=== PATIENT | female | born 1990 | race Caucasian/White ===

== ENCOUNTER 2016-09-19 06:35 | Inpatient (IN) | payer OTHER ==
[~2016-09-19] VITALS: Ht 162.6 cm; Wt 81.6 kg
[2016-09-19] VITALS (34 sets, daily range): BP systolic 83–145; BP diastolic 46–86
[~2016-09-19 06:35] MED LIST: AUGMENTIN875 MG PO; CYCLOBENZAPRINE10 MG PO; LORTAB 10 MG-3473 ML PO; MELOXICAM7.5 MG PO; MIRENA52 MG IY; Micronor,Nor-Q-D,Err PO; NO HOME MEDS; TYLENOL REGULA325 MG PO
[2016-09-19] MEDS ORDERED: PRENATAL TABLE1 EAC3 PO (07:06)
[2016-09-19 10:52] LABS: EOSINOPHIL (%) 1.4 % (0-5); EOSINOPHIL COUNT 0.2 K/uL (0-0.3); HEMATOCRIT 30.4 % (36.0-46.0); IMMATURE GRANULOCYTE (%) 0.5 % (0.0-0.7); IMMATURE GRANULOCYTE COUNT 0.1 K/uL; INSTRUMENT ABS NEUTROPHIL CT 8.2 K/uL; LYMPHOCYTE COUNT 3.3 K/uL (1.0-2.8); MCH 30.2 PG (29.0-34.0); MCHC 32.2 G/DL (30.0-36.0); MCV 93.8 FL (83-99); MEAN PLAT.VOLUME 11.1 uM^3 (9.5-12.4); MONOCYTE (%) 10.1 % (3-12); MONOCYTE COUNT 1.3 K/uL (0-0.8); NEUTROPHIL (%) 62.4 % (45-76); NEUTROPHIL COUNT 8.2 K/uL (1.8-6.4); PLATELET COUNT 163 K/uL (156-360); RBC DIS.WIDTH-CV 13.5 % (11.8-14.6); RBC DIS.WIDTH-SD 46.2 % (39-53); RED BLOOD COUNT 3.24 M/uL (3.80-5.20); WHITE BLOOD COUNT 13.1 K/uL (4.1-10.2)
[2016-09-20 07:46] VITALS: BP 106/55
[2016-09-20 23:03] VITALS: BP 105/55
[2016-09-21 05:35] VITALS: BP 100/56
== END 2016-09-21 14:15 | disposition home or self-care (01) | DRG 775 ==
LOC: LDRP-OP 06:35 → 2WEST 06:36 → LDRP-OP 09:45 → 2WEST 19:14 → LDRP-OP 10-18 19:52
PROVIDERS: Obstetrics & Gynecology
PROC: 10E0XZZ Delivery of Products of Conception, External Approach (ICD-10-PCS; principal; 2016-09-19)
PROC: 3E033VJ Introduction of Other Hormone into Peripheral Vein, Percutaneous Approach (ICD-10-PCS; 2016-09-19)
PROC: 10907ZC Drainage of Amniotic Fluid, Therapeutic from Products of Conception, Via Natural or Artificial Opening (ICD-10-PCS; 2016-09-19)
PROC: 3E0S3BZ Introduction of Anesthetic Agent into Epidural Space, Percutaneous Approach (ICD-10-PCS; 2016-09-19)
DX: O99.334 Smoking (tobacco) complicating childbirth (principal); Z37.0 Single live birth; Z3A.40 40 weeks gestation of pregnancy; F17.210 Nicotine dependence, cigarettes, uncomplicated; Z83.3 Family history of diabetes mellitus; O63.0 Prolonged first stage (of labor); D50.8 Other iron deficiency anemias; O99.013 Anemia complicating pregnancy, third trimester; O69.81X1 Labor and delivery complicated by cord around neck, without compression, fetus 1; E66.9 Obesity, unspecified; O99.214 Obesity complicating childbirth; Z68.30 Body mass index [BMI] 30.0-30.9, adult
CPT/HCPCS: 74000; 85025; C1755; J0595; J7120

== ENCOUNTER 2016-11-18 08:16 | Day surgery (SDC) | payer OTHER ==
[~2016-11-18] VITALS: Ht 162.6 cm; Wt 77.0 kg
[~2016-11-18 08:16] MED LIST changes: +PRENATAL TABLE1 EAC3 PO; +SPRINTEC1 EACH PO
[2016-11-18 08:55] VITALS: BP 120/74
[2016-11-18] MEDS ORDERED: HYDROCODON-ACE1 EAC7 PO (11:09)
[2016-11-18 12:00] VITALS: BP 104/66
[2016-11-18 13:00] VITALS: BP 109/55
== END 2016-11-18 13:17 | disposition home or self-care (01) ==
LOC: SDC 08:16
DX: Z30.2 Encounter for sterilization (principal); D06.0 Carcinoma in situ of endocervix; N94.6 Dysmenorrhea, unspecified; F17.210 Nicotine dependence, cigarettes, uncomplicated; K21.9 Gastro-esophageal reflux disease without esophagitis
CPT/HCPCS: 88302; 88307; J0330; J0690; J1100; J1170; J1885; J2250; J2405; J3010

== ENCOUNTER 2017-01-06 05:37 | Day surgery (SDC) | payer OTHER ==
[~2017-01-06] VITALS: Ht 162.6 cm; Wt 73.5 kg
[~2017-01-06 05:37] MED LIST changes: +HYDROCODON-ACE1 EAC7 PO
[2017-01-06 06:02] VITALS: BP 104/79
[2017-01-06] MEDS ORDERED: HYDROCODON-ACE1 EAC7 PO (09:22)
[2017-01-06 10:50] VITALS: BP 118/72
[2017-01-06 12:00] VITALS: BP 113/65
[2017-01-06 12:25] VITALS: BP 115/68
== END 2017-01-06 12:35 | disposition home or self-care (01) ==
LOC: SDC 05:37
DX: D06.9 Carcinoma in situ of cervix, unspecified (principal); K21.9 Gastro-esophageal reflux disease without esophagitis; J45.909 Unspecified asthma, uncomplicated; F41.8 Other specified anxiety disorders; F17.210 Nicotine dependence, cigarettes, uncomplicated
CPT/HCPCS: 88307; J0131; J0690; J1100; J1170; J1885; J2175; J2250; J2405; J2710; J3010

== ENCOUNTER 2017-01-15 00:39 | Observation (INO) | payer OTHER ==
[~2017-01-15] VITALS: Ht 162.6 cm; Wt 79.0 kg
[2017-01-15 01:16] LABS: HEMATOCRIT 36.4 % (36.0-46.0); MCH 29.6 PG (29.0-34.0); MCHC 32.7 G/DL (30.0-36.0); MCV 90.5 FL (83-99); MEAN PLAT.VOLUME 10.1 uM^3 (9.5-12.4); RBC DIS.WIDTH-CV 13.5 % (11.8-14.6); RBC DIS.WIDTH-SD 44.5 % (39-53); RED BLOOD COUNT 4.02 M/uL (3.80-5.20); WHITE BLOOD COUNT 8.5 K/uL (4.1-10.2)
[2017-01-15 01:17] LABS: PLATELET COUNT 268 K/uL (156-360)
[2017-01-15 01:26] LABS: CHLORIDE 106 mEq/L (99-109); POTASSIUM 3.6 mEq/L (3.7-5.4); SODIUM 140 mEq/L (136-147)
[2017-01-15 01:28] LABS: GLUCOSE 98 mg/dL (70-99)
[2017-01-15 01:29] LABS: ANION GAP 12 MEQ/L (2-14)
[2017-01-15 01:30] LABS: TOTAL BILIRUBIN 0.2 mg/dL (0.0-1.0)
[2017-01-15 01:31] LABS: ALKALINE PHOSPHATASE 77 IU/L (3-129)
[2017-01-15 01:32] LABS: GFR ESTIMATE (CALCULATED) > 59 mL/min/
[2017-01-15 01:33] LABS: DIRECT BILIRUBIN 0.1 mg/dL (0.0-0.3); UREA NITROGEN (BUN) 8 mg/dL (9-23)
[2017-01-15 01:35] LABS: LIPASE 23 U/L (1.0-51.0)
[2017-01-15 01:41] LABS: QUANTITATIVE HCG < 4.0 MIU/ML
[2017-01-15 02:31] LABS: ADD MIUA? YES; BILIRUBIN NEGATIVE; BLOOD NEGATIVE; COLOR YELLOW ((YELLOW)); GLUCOSE (STRIP) NEGATIVE; KETONES NEGATIVE; LEUKOCYTES SMALL; NITRITE NEGATIVE; PROTEIN (STRIP) NEGATIVE; SPECIFIC GRAVITY 1.017 (1.000-1.030); UROBILINOGEN 0.2 MG/DL (0.2-1.0)
[2017-01-15 02:43] LABS: BACTERIA NONE SEEN /HPF; EPITHELIAL CELLS RARE /HPF; MUCUS TRACE /LPF; RED BLOOD CELLS 0-5 /HPF (0-5); UCUL ADDED? NO; WHITE BLOOD CELLS 0-5 /HPF (0-5)
[2017-01-15 04:51] VITALS: BP 112/57
[2017-01-15 08:05] VITALS: BP 109/56
[2017-01-15] MEDS ORDERED: OXYCODONE-APAP1 EACH PO (09:20)
[2017-01-15] MEDS ORDERED: DULCOLAX10 MG PR (09:20)
== END 2017-01-15 09:47 | disposition home or self-care (01) ==
LOC: EME 00:39 → EDOF 03:22 → 2EASTP 04:38
PROVIDERS: Emergency Medicine
DX: I82.890 Acute embolism and thrombosis of other specified veins (principal); Z90.710 Acquired absence of both cervix and uterus; R79.89 Other specified abnormal findings of blood chemistry; K59.00 Constipation, unspecified; Z83.49 Family history of other endocrine, nutritional and metabolic diseases
CPT/HCPCS: 74176; 80048; 80076; 81003; 83690; 84702; 85027; 87086; 99281; 99285; G0378; J1885; J2405; J7030; J7050